=== PATIENT | male | born 1960 | race Caucasian/White ===

== ENCOUNTER 2024-02-28 09:07 | Outpatient (CLI) | payer MEDICARE, OTHER, SELFPAY ==
--- NOTE | 2024-02-28 11:08 | W.ANESCHARGE ---
Anesthesia Charges Start Date/Time Anesthesia Start Date: 02/28/24 Anesthesia Start Time: 10:44 Stop Date/Time Anesthesia Stop Date: 02/28/24 Anesthesia Stop Time: 11:05
== END 2024-02-28 09:08 | disposition home or self-care (01) ==
PROVIDERS: PCP Family Medicine; Visit Provider Internal Medicine Gastroenterology
DX: Z12.11 Encounter for screening for malignant neoplasm of colon (principal); K57.30 Diverticulosis of large intestine without perforation or abscess without bleeding; Z86.0101 Personal history of adenomatous and serrated colon polyps
CPT/HCPCS: 00812; 45378; J2704